=== PATIENT | female | born 1945 | race Caucasian/White ===

== ENCOUNTER 2021-02-14 10:28 | Outpatient (CLI) | payer MEDICARE ==
[2021-02-15 01:12] LABS: SARS-CoV-2 PCR by NAA Not Detected (NotDetected)
== END 2021-02-14 10:29 | disposition home or self-care (01) ==
LOC: CSHLAB 10:28
PROVIDERS: ATTEND Internal Medicine Hematology & Oncology
DX: Z20.822 Contact with and (suspected) exposure to COVID-19 (principal); C78.7 Secondary malignant neoplasm of liver and intrahepatic bile duct
CPT/HCPCS: U0003; U0005

== ENCOUNTER 2021-02-17 07:17 | Day surgery (SDC) | payer MEDICARE ==
[~2021-02-17 07:17] MED LIST: Fentanyl 100 MCG/2 ML VIAL ONE; Lidocaine 1% PF 5 ML VIAL ONE; Naloxone HCl 0.4 mg/ml Vial ONE
[2021-02-17] MEDS ORDERED: Sodium Bicarbonate 2.5 MEQ/5 ML VIAL ONE (07:18)
[2021-02-17] MEDS ORDERED: Midazolam HCl 2 mg/2 ml Vial ONE (07:19)
[2021-02-17 07:57] LABS: #Eosinphils 0.2 10x3/uL (0.0-0.5); #Monocytes 0.9 10x3/uL (0.0-1.1); #Neutrophils 4.9 10x3/uL (1.5-8.4); %Basophils 0.6 % (0.0-2.0); %Eosinophils 2.5 % (0.0-6.0); %Lymphocytes 16.1 % (18.0-47.0); %Monocytes 12.1 % (0.0-10.0); %Neutrophils 68.4 % (40.0-75.0); Hemoglobin 10.3 g/dL (12.0-15.5); Mean Corpuscular HGB CONC 30.5 g/dL (32.0-36.0); Mean Corpuscular Hemoglobin 26.3 pg (27.0-33.0); Mean Corpuscular Volume 86.2 fl (81.6-98.3); Mean Platelet Volume 10.4 fl (7.4-10.4); Platelet Count 310 10x3/uL (150-450); RBC Distribution Width 16.8 % (11.5-14.5); Red Blood Cell (RBC) Count 3.92 10x6/uL (3.90-5.03); White Blood Cell (WBC) Count 7.2 10x3/uL (3.5-10.5)
[2021-02-17 08:08] LABS: INR-International Normal Ratio 1.1; PTT 26.6 sec (22.0-33.0); Prothrombin Time 11.6 sec (9.5-12.1)
[2021-02-17 08:23] VITALS: BP 129/59; TEMP 97.8
== END 2021-02-17 10:30 | disposition home or self-care (01) ==
LOC: CSHCT 07:17
PROVIDERS: ATTEND Internal Medicine Hematology & Oncology
DX: C78.7 Secondary malignant neoplasm of liver and intrahepatic bile duct (principal); C79.51 Secondary malignant neoplasm of bone
CPT/HCPCS: 47000; 85025; 85610; 85730; 88307; 88341; 88342; 88360; J2250; J2310; J3010